=== PATIENT | male | born 1995 | race Caucasian/White ===

== ENCOUNTER 2017-05-11 18:58 | Emergency (ER) | payer SELFPAY ==
[~2017-05-11] VITALS: Ht 167.6 cm; Wt 77.1 kg
--- NOTE | 2017-05-11 19:50 | [facility]gent Treatment Center Report ---
History of Present Issue Date/Time Seen by Provider 05/11/171939 Visit Reason Pt arrived:Walked Presenting Problem:PT C/O OF BACK PAIN WHEN BREATHING AND MINOR COUGH Location if Accident: Onset of symptoms date/time:05/08/1710/20/899 or onset unknown for: Have you (or family members/close friends) recently traveled outside the [place]? N If Yes, where/when: Have you had exposure to infectious disease within the past month? TB? Other? Specify: Patient states that he has been having back pain when he takes a deep breath in or coughs States that he was sick about 2 weeks ago and thought he had bronchitis States that he was sick for a couple of days then his symptoms went away and now he is having some discomfort in his back when he takes a deep breath or coughs. Denies fever, denies currently feeling ill ALLERGIES Coded Allergies: No Known Allergies (07/16/15) Home Medications Active Scripts Prednisone (Prednisone 20MG) 20 MG PO BID #10 TAB Prov: 07/16/15 History Medical History General CAD? No Angina: No ME: No Hypertension? No Hyperlipidemia? No CHF? No DVT? No PE? No COPD? No Asthma? No Anemia? No GERD? No Gastric ulcers? No GI Bleed? No Hernia? No Thyroid Problems? No Hypothyroidism? No CVA? No Seizures? No Diabetes? No Renal Insuffiency? No UTI? No Stones? No BPH? No GB Disease: No Nephritic Syndrome? No Asplenia? No Hepatitis? No Sickle Cell Disease? No Arthritis? No Migraines? No Cataracts? No Glaucoma? No MRSA? No HIV? No TB? No Anxiety? No Depression? No Cancer? No Immunization HX DT/Tetanus 1-4 Years Ago Surgical Hx Previous Surgery?N Social History Smoking Hx Smoker: Current Every Day Smoker Tobacco: Yes Type Cigarettes Packs/day 1 1/2 - 2 Packs Alcohol Alcohol: Yes Review of Systems All Other Systems Reviewed and Negative Respiratory cough Physical Exam Vital Signs Vital Signs Date Time Temp Pulse Resp B/P Pulse O2 O2 Flow FiO2 Ox Delivery Rate 05/11 1911 98.0 76 18 131/93 98 General Appearance normal appearance, no apparent distress Respiratory Status Yes: trachea midline, chest symmetrical, non tender chest. No: respiratory distress. Lung Sounds bilateral: normal breath sounds, lungs clear. Cardiovascular normal exam, regular rate/rhythm, no peripheral edema Back Pain in back area when he takes a deep breath or coughs Neurologic alert, normal exam, oriented x 3 Medical Decision Making LABS/Meds/Orders Pt receiving controlled substance in ED? No Results/Orders Orders Procedure Date/time Status CHEST(2 VIEWS-NOT PORTABLE) 05/11 1911 Active XRAY/CT/US XRAY/CT/US XRAY chest XR interpretation by reviewed by me Xray Results no infiltrates Departure Departure Time of Disposition 2005 Disposition DC Home or Self Care(routine) Clinical Impression Primary Impression: Back pain Condition STABLE Patient Instructions Cough, DI for Cough -- Adult Additional Instructions Drink plenty of fluids Follow up with family doctor Return if needed Take medication as prescribed Discharge Counseling Counseled pt/family regarding diagnosis, test results, medications/RX, home care, follow up needs Prescriptions Current Visit Scripts Ibuprofen (Ibuprofen 800MG) 800 MG PO QIDP PRN pain #30 TAB at 2013
[2017-05-11 20:15] VITALS: BP 131/93
--- NOTE | 2017-05-12 09:32 | RADIOLOGY REPORT PS360 ---
CHEST(2 VIEWS-NOT PORTABLE) INDICATION: Cough, suspect bronchitis COMPARISON: None FINDINGS: The lung valladares are well expanded and appear clear of infiltrate. The cardiomediastinal silhouette and vascularity are normal. The costophrenic angles are clear. The bony thorax is normal. IMPRESSION: Normal chest.
== END 2017-05-11 20:15 | disposition home or self-care (01) ==
LOC: UTC 18:58
DX: M54.9 Dorsalgia, unspecified (principal); F17.210 Nicotine dependence, cigarettes, uncomplicated